=== PATIENT | male | born 1970 | race Caucasian/White ===

== ENCOUNTER 2017-06-29 10:00 | Emergency (ER) | payer BC ==
[~2017-06-29] VITALS: Ht 188 cm; Wt 100.0 kg
[2017-06-29 10:01] VITALS: BP 162/104; PULSE 69; RESP 14; TEMP 98.4; O2SAT 97
[2017-06-29] MEDS ORDERED: LISI-515 PO (11:36)
[2017-06-29] MEDS ORDERED: MELO7.5T27 PO (11:36)
[2017-06-29] MEDS ORDERED: VENL100T PO (11:36)
[2017-06-29] MEDS ORDERED: OMEP20TA93 PO (11:36)
--- NOTE | 2017-06-29 12:31 | PD ---
Physical Exam Date Seen by Provider: Jun 29, 2017 Narrative 47-year-old male presents to emergency department complaining of right eye pain after getting a piece of plastic in his eye yesterday. Says he does have some blurry vision and mild headache since the incident. Fluorescein stain with increased uptake at 3 o'clock position of the cornea. Scleral injection. Clear discharge. PERRLA, EOMI. eyelids with mild erythema and edema without ptosis or proptosis. Patient does not wear contact lenses or corrective lenses. H&P consistent with a corneal abrasion. Patient discharged with antibacterial eyedrops. Strongly advised patient to follow up with [facility] within 1-2 days. Return to the emergency department if worsening or persistent symptoms. Data Data Last Documented VS Vital Signs Date Time Temp Pulse Resp B/P (MAP) Pulse Ox O2 Delivery O2 Flow Rate FiO2 06/29/17 10:01 98.4 69 14 162/104 (123) 97 MDM Supervised Visit with [facility]: Yes Scripts Erythromycin Opth Oint (Erythromycin Opth Oint) 5 Mg/Gm Oint 1 APPLIC RIGHT EYE QID for Infection for 7 Days, #1 TUBE 0 Refills Prov: Bria Badillo MD 06/29/17 Kayli Cordero Jun 29, 2017 12:31
[2017-06-29] MEDS ORDERED: ERYTOIN10 RIGHT EYE (12:32)
[2017-06-29] MEDS ORDERED: KETO1SOL3 RIGHT EYE (12:36)
[2017-06-29] MEDS ORDERED: NORC5TAB PO (12:36)
--- NOTE | 2017-06-29 12:37 | PD ---
HPI . Right eye injury Chief Complaint: Eye Problems/Injury Time Seen by Provider: 12:13 Travel History International Travel<30 days: No Contact w/Intl Traveler<30days: No Traveled to known affect area: No History of Present Illness HPI This patient presents with a right eye injury. He was struck in the right eye yesterday by a piece of plastic. This pain is associated with increased tearing. Pain has been unrelieved by eyedrops. Pain is rated 6/10. PFSH Past Medical History Hypertension: Yes Past Surgical History Cholecystectomy: Yes Social History Alcohol Use: Yes (occassionally) Tobacco Use: Yes (10 cigarettes per day) Substance Use: Yes (MARIJUANA DAILY) Allergies-Medications (Allergen,Severity, Reaction): Coded Allergies: cephalexin (Verified Allergy, Unknown, 06/29/17) Reported Meds & Prescriptions Reported Meds & Active Scripts Active Erythromycin Opth Oint 5 Mg/Gm Oint 1 Applic RIGHT EYE QID 7 Days Reported Meloxicam 7.5 Mg Tab 7.5 Mg PO DAILY Lisinopril 20 Mg Tab 20 Mg PO DAILY Omeprazole 20 Mg Tab 20 Mg PO DAILY Effexor (Venlafaxine HCl) 100 Mg Tab 300 Mg PO DAILY Review of Systems Except as stated in HPI: all other systems reviewed are Neg Eyes: Positive: Drainage, Redness, Foreign Body Sensation, Pain, Tearing Physical Exam Narrative GENERAL: Awake and alert. SKIN: Warm and dry with no rash or lesions. HEAD: Normocephalic/atraumatic. EYES: Right eye injection and tearing. NECK: Supple. RESPIRATORY: Nonlabored respirations. MUSCULOSKELETAL: Atraumatic. NEUROLOGICAL: Nonfocal. PSYCHIATRIC: Appropriate mood and affect. Data Data Last Documented VS Vital Signs Date Time Temp Pulse Resp B/P (MAP) Pulse Ox O2 Delivery O2 Flow Rate FiO2 06/29/17 10:01 98.4 69 14 162/104 (123) 97 MDM Medical Decision Making Medical Screen Exam Complete: Yes Emergency Medical Condition: Yes Differential Diagnosis Differential diagnosis of eye pain includes but is not limited to conjunctivitis , chemical irritation, corneal abrasion, acute angle-closure glaucoma. Narrative Course This patient presents with an injury to the right eye. Please see Kayli Cordero PA-C's note for further details, lab and radiology results, final diagnosis and disposition. Diagnosis Primary Impression: Right corneal abrasion Qualified Codes: S05.01XA - Injury of conjunctiva and corneal abrasion without foreign body, right eye, initial encounter Scripts Hydrocodone-Acetaminophen ([place]) 5-325 mg Tab 1 TAB PO Q4H Y for PAIN, #6 TAB 0 Refills Prov: Bria Badillo MD 06/29/17 Ketorolac Opth Drops (Acular Opth Drops) 0.5% Drops 1 DROP RIGHT EYE QID for Pain/Inflammation, #5 ML 0 Refills Prov: Bria Badillo MD 06/29/17 Erythromycin Opth Oint (Erythromycin Opth Oint) 5 Mg/Gm Oint 1 APPLIC RIGHT EYE QID for Infection for 7 Days, #1 TUBE 0 Refills Prov: Bria Badillo MD 06/29/17 Disposition: 01 DISCHARGE HOME Condition: Stable Bria Badillo MD Jun 29, 2017 12:37
== END 2017-06-29 13:04 | disposition home or self-care (01) ==
LOC: NEPD 10:00
DX: S05.01XA Injury of conjunctiva and corneal abrasion without foreign body, right eye, initial encounter (principal); I10 Essential (primary) hypertension; F17.210 Nicotine dependence, cigarettes, uncomplicated; W22.8XXA Striking against or struck by other objects, initial encounter
CPT/HCPCS: 99284